=== PATIENT | female | born 1935 | race Caucasian/White ===

== ENCOUNTER 2017-12-07 17:22 | Day surgery (SDC) | payer MEDICARE ==
[~2017-12-07] VITALS: Ht 147.3 cm; Wt 40.9 kg
[2017-12-07 17:40] VITALS: BP 115/56
[2017-12-07] MEDS ORDERED: HYDROcodone/APAP 7.5 MG/325 MG (LORTAB, LORCET PLUS) TABLET PO PRN (18:15)
[2017-12-07] MEDS ORDERED: fentaNYL INJECTION 100 MCG/2 ML AMP IVP PRN ×2 (18:15→20:15)
[2017-12-07] MEDS ORDERED: CATHETER FLUSH 10 ML SYR IV PRN (18:30)
[2017-12-07] MEDS: NS IV 1000 ML 1,000 ML IV SCH (18:31)
[2017-12-07] MEDS ORDERED: ONDANSETRON 4 MG/2 ML (SDV) Z0FRAN IVP PRN (19:00)
[2017-12-07] MEDS: CIPROFLOXACIN IV 400MG/200ML 200 ML IV SCH (19:23)
[2017-12-07 19:40] VITALS: BP 104/47
[2017-12-07] MEDS ORDERED: diphenhydrAMINE 50 MG/ML INJ (BENADRYL) IVP PRN (19:45)
--- NOTE | 2017-12-07 20:56 | Progress Note-Pre Operative ---
Pre-Operative Progress Note H&P Reviewed The H&P was reviewed, patient examined and no changes noted. Date Seen by Provider: Dec 07, 2017 Time Seen by Provider: 20:30 Date H&P Reviewed: Dec 07, 2017 Time H&P Reviewed: 20:30 Pre-Operative Diagnosis: acute calculous cholecystitis KELLY FOREMAN MD Dec 07, 2017 8:56 pm
--- NOTE | 2017-12-07 21:21 | HISTORY AND PHYSICAL ---
DATE OF SERVICE: ATTENDING PRIMARY CARE PHYSICIAN: Dr. Tyrell Lorenzo. HISTORY OF PRESENT ILLNESS: The patient is an 82-year-old female who was seen at [facility] for pain in the right upper abdominal quadrant. She reports that this has been episode #3 or 4. She reports that approximately 1 year ago she did have significant pain in the right upper abdominal quadrant, was also found to have pancreatitis. It appears that she also did have some form of choledocholithiasis and she was referred to gastroenterology and underwent ERCP and stone extraction approximately one year ago. She does not remember if she was instructed to proceed with surgery referral for a completion cholecystectomy. Either way, she has again had some intermittent episodes of pain in the right upper abdominal quadrant usually after meals that would sometimes be mild, however, this time around has been more severe. She has had pain in the right upper abdominal quadrant for the past three to four days with associated nausea; however, no vomiting. A CT scan was performed in [place], which did show some gallbladder wall thickening as well as gallstones consistent with an acute cholecystitis. Her only other past medical history includes hypertension. PAST MEDICAL HISTORY: Hypertension and pancreatitis. PAST SURGICAL HISTORY: Total abdominal hysterectomy, bilateral cataract surgery, laparoscopic Ramiro fundoplication, laparoscopic appendectomy, ERCP and stone extraction one year ago. ALLERGIES: SULFA. MEDICATIONS: Nexium 40 mg daily, aspirin 81 mg daily, lisinopril 10 mg daily, and tramadol 50 mg p.r.n. SOCIAL HISTORY: Negative smoke, negative alcohol. FAMILY HISTORY: Mother, breast cancer. REVIEW OF SYSTEMS: Well-nourished female currently in no acute distress. She is not experiencing any shortness of breath or difficulty breathing. No chest pain, palpitations or diaphoresis. Intermittent episodes of nausea; however, no vomiting. Her chief complaint is mostly right upper abdominal quadrant pain with some radiation towards the back. No diarrhea or constipation, no red blood per rectum, no dark tarry stools. No fever or chills, no recent inadvertent weight loss. All other review of systems is negative. PHYSICAL EXAMINATION: VITAL SIGNS: Temperature 98.8, blood pressure 115/56, pulse 86, respirations 16, pulse ox 97% on room air. CHEST: Clear. Good breath sounds bilaterally. HEART: Regular, no murmurs. EXTREMITIES: No lower extremity edema. Negative Homans sign. HEENT: No scleral icterus. NECK: No cervical lymphadenopathy. ABDOMEN: Soft, nondistended. There is pain in the right upper abdominal quadrant upon palpation with no peritoneal signs. SKIN: Warm, dry. ASSESSMENT AND PLAN: An 82-year-old female with acute calculous cholecystitis. The natural history of gallbladder disease was explained to the patient as well as the risk of recurrent episodes of cholecystitis as well as risk of gangrenous cholecystitis and perforation. She is understanding of the risks and benefits of surgery and would like to proceed with a laparoscopic cholecystectomy, which we will proceed with on this admission. Job ID: [id number] DocumentID: [id number] Dictated Date: 12/07/2017 20:54:50 Airline Dispatcher Date: 12/07/2017 21:21:14 Dictated By: KELLY FOREMAN MD
[2017-12-07] MEDS: metroNIDAZOLE 500MG/100ML IVPB 100 ML IV SCH (22:06)
[2017-12-08 04:00] VITALS: BP 111/56
[2017-12-08 06:10] LABS: BASOPHILS % (AUTO) 0 % (0-10); EOSINOPHILS # (AUTO) 0.2 10^3/uL (0.0-0.3); EOSINOPHILS % (AUTO) 2 % (0-10); HEMATOCRIT 29 % (35-52); HEMOGLOBIN 9.1 G/DL (11.5-16.0); LYMPHOCYTES # (AUTO) 0.9 X 10^3 (1.0-4.0); LYMPHOCYTES % (AUTO) 8 % (12-44); MEAN CORPUSCULAR HEMOGLOBIN 32 PG (25-34); MEAN CORPUSCULAR HGB CONC 32 G/DL (32-36); MEAN CORPUSCULAR VOLUME 101 FL (80-99); MEAN PLATELET VOLUME 9.7 FL (7.4-10.4); MONOCYTES # (AUTO) 1.5 X 10^3 (0.0-1.0); MONOCYTES % (AUTO) 14 % (0-12); NEUTROPHILS # (AUTO) 8.1 X 10^3 (1.8-7.8); NEUTROPHILS % (AUTO) 76 % (42-75); PLATELET COUNT 269 10^3/uL (130-400); RED BLOOD COUNT 2.83 10^6/uL (4.35-5.85); RED CELL DISTRIBUTION WIDTH 12.5 % (10.0-14.5); WHITE BLOOD COUNT 10.7 10^3/uL (4.3-11.0)
[2017-12-08 06:32] LABS: ALBUMIN 2.8 GM/DL (3.2-4.5); BILIRUBIN,TOTAL 0.3 MG/DL (0.1-1.0); CALCIUM 8.7 MG/DL (8.5-10.1); CREATININE SERUM 1.49 MG/DL (0.60-1.30); POTASSIUM 4.5 MMOL/L (3.6-5.0); TOTAL PROTEIN 5.8 GM/DL (6.4-8.2)
[2017-12-08] MEDS: NS IV 1000 ML 1,000 ML IV SCH ×2 (06:34→14:34)
[2017-12-08] MEDS: metroNIDAZOLE 500MG/100ML IVPB 100 ML IV SCH (07:54)
[2017-12-08] MEDS: CIPROFLOXACIN IV 400MG/200ML 200 ML IV SCH (07:57)
[2017-12-08 08:00] VITALS: BP 110/56
[2017-12-08] MEDS ORDERED: PANTOPRAZOLE 40 MG (PROTONIX) VIAL IV SCH (09:00)
[2017-12-08] MEDS ORDERED: CITA10TA7 PO (09:13)
[2017-12-08] MEDS ORDERED: ASPI-983 PO (09:13)
[2017-12-08] MEDS ORDERED: MAGN400T39 PO (09:13)
[2017-12-08] MEDS ORDERED: GABA-486 PO (09:13)
[2017-12-08] MEDS ORDERED: CALC-654 PO (09:13)
[2017-12-08] MEDS ORDERED: LIPA1CAP27 PO (09:13)
[2017-12-08] MEDS ORDERED: PANT40TA3 PO (09:13)
[2017-12-08] MEDS ORDERED: MULT-351 PO (09:13)
[2017-12-08] MEDS ORDERED: METO-370 PO (09:13)
[2017-12-08] MEDS ORDERED: METO5TAB2 PO (09:13)
[2017-12-08] MEDS ORDERED: LISI10TA2 PO (09:13)
[2017-12-08] MEDS ORDERED: ASPI-992 PO (09:13)
[2017-12-08] MEDS ORDERED: ROCURONIUM 10 MG/ML 5 ML SYRINGE IV ONE (09:58)
[2017-12-08] MEDS ORDERED: LIDOCAINE PF 2% 5 ML (XYLOCAINE) VIAL ONE (09:58)
[2017-12-08] MEDS ORDERED: fentaNYL INJECTION 100 MCG/2 ML AMP ONE (09:58)
[2017-12-08] MEDS ORDERED: ONDANSETRON 4 MG/2 ML (SDV) Z0FRAN ONE (09:58)
[2017-12-08] MEDS ORDERED: LACTATED RINGERS 1,000 ML IV ONE (09:58)
[2017-12-08] MEDS ORDERED: proPOfol 200 MG/20 ML (DIPRIVAN) VIAL IV ONE (09:58)
[2017-12-08] MEDS ORDERED: MIDAZOLAM 2 MG/2 ML (VERSED) VIAL ONE (09:59)
[2017-12-08] MEDS ORDERED: DEXAMETHASONE 10 MG/ML (DECADRON) 1 ML VIAL ONE (09:59)
[2017-12-08] MEDS ORDERED: SEVOFLURANE (ULTANE) 15 ML INHAL SOLN ONE ×5 (09:59→11:36)
[2017-12-08] MEDS ORDERED: BUP/EPI 0.5% 1:200,000 (SENSORCAINE) 30 ML VIAL ONE (10:15)
[2017-12-08] MEDS: LACTATED RINGERS 1,000 ML IV PRN ×2 (10:27→11:39)
[2017-12-08] MEDS ORDERED: ceFAZolin 1,000 MG/10 ML (ANCEF) VIAL ONE (11:04)
[2017-12-08] MEDS ORDERED: METOCLOPRAMIDE INJ 10 MG/2 ML (REGLAN) ONE (11:06)
[2017-12-08] MEDS ORDERED: SUCCINYLCHOLINE INJ 100 MG/5 ML SYR ONE (11:40)
[2017-12-08] MEDS ORDERED: NEOSTIGMINE 1 MG/ML 5 ML SYRINGE ONE (11:45)
[2017-12-08] MEDS ORDERED: GLYCOPYRROLATE 0.2 MG/ML (ROBINUL) 2 ML VIAL ONE (11:45)
--- NOTE | 2017-12-08 11:56 | Progress Note-Post Operative ---
Post-Operative Progess Note Surgeon (s)/Specialty Plant Supervisor (s) Surgeon KELLY FOREMAN MD Specialty Plant Supervisor: marcus bonilla PHYSICAL THERAPY TEACHER Pre-Operative Diagnosis acute calculous cholecystitis Post-Operative Diagnosis same Procedure & Operative Findings Date of Procedure 12/08/17 Procedure Performed/Findings laparoscopic cholecystectomy Anesthesia Type GET Estimated Blood Loss Estimated blood loss (mL): minimal Specimens/Packing Specimens Removed gallbladder KELLY FOREMAN MD Dec 08, 2017 11:55
[2017-12-08] MEDS ORDERED: SUGAMMADEX 500 MG/5 ML VIAL (BRIDION) IV ONE (11:58)
[2017-12-08] MEDS ORDERED: HYDR-34 PO (11:59)
--- NOTE | 2017-12-08 11:59 | Discharge Inst-Surgical ---
D/C Lap Instructions-KELLEN New, Converted, or Re-Newed RX: RX on Chart Follow Up Appt in 2 weeks Activity as tolerated No driving for 24 hours No driving while on pain medications Incentive Spirometry use every 2 hours while awake Regular Diet Symptoms to Report: Fever over 101 degree F, Nausea/Vomiting Infection Signs and Symptoms to report: Increased redness, Foul odor of wound, Increased drainage Bathing instructions: May shower Operative Area Clean/Dry; Keep incision clean/dry If any problems/questions: Contact your physician or go to Emergency Room KELLY FOREMAN MD Dec 08, 2017 11:59
[2017-12-08] MEDS ORDERED: HYDROmorphone 2 MG/ML VIAL (DILAUDID) ONE (12:15)
[2017-12-08] MEDS ORDERED: HYDROmorphone 2 MG/ML VIAL (DILAUDID) IV ONE (12:30)
[2017-12-08] MEDS ORDERED: PROMETHAZINE INJ 25 MG/ML (PHENERGAN) AMP IVP ONE (12:30)
[2017-12-08] MEDS ORDERED: ONDANSETRON 4 MG/2 ML (SDV) Z0FRAN IVP PRN (12:30)
[2017-12-08 17:51] VITALS: BP 110/56
--- NOTE | 2017-12-08 20:32 | OPERATIVE REPORT ---
DATE OF SERVICE: 12/08/2017 ATTENDING PRIMARY CARE PHYSICIAN: Dr. Tyrell Lorenzo. PREOPERATIVE DIAGNOSIS: Acute calculous cholecystitis. POSTOPERATIVE DIAGNOSIS: Acute calculous cholecystitis. PROCEDURE: Laparoscopic cholecystectomy. SURGEON: Kelly Foreman MD THIMBLE PRESS OPERATOR: Jason Ghotra APRN. ANESTHESIA: General endotracheal. ESTIMATED BLOOD LOSS: Minimal. FINDINGS: Inflamed gallbladder, which was distended and there was a hydrops of the gallbladder as well. DISPOSITION: The patient tolerated the procedure well. INDICATIONS: The patient is an 82-year-old female who was seen in the emergency department for pain in the right upper abdominal quadrant as well as nausea. She reports that this is her third or fourth episode. She also states that approximately one year ago, she had similar symptoms and also had a pancreatitis. It appears that she had some form of gallstone pancreatitis and did undergo ERCP and stone extraction approximately one year ago; however, she did not follow up for completion cholecystectomy. This time around, she has again had more pain in the right upper abdominal quadrant, which was more severe in nature. A CT scan was performed, which did show gallbladder wall thickening as well as multiple gallstones consistent with an acute calculous cholecystitis. DESCRIPTION OF PROCEDURE: The patient was brought to the operating room, laid supine on the table. After adequate IV pain and sedating medications and general endotracheal intubation, the abdomen was prepped and draped in standard surgical fashion. A 0.5% Marcaine with epinephrine was used to anesthetize the overlying skin in the left upper abdominal quadrant and a small transverse skin incision was made using a 15 blade. An 0 silk suture was applied to the medial aspect of the incision for retraction and a Veress needle was inserted with a low opening pressure of 0 mmHg. The abdomen was then insufflated to 15 mmHg pressure. The Veress needle was removed and a 5 mm Xcel trocar was placed followed by a 5 mm 45-degree angle laparoscope visualizing the peritoneal cavity. A 4-quadrant abdominal exploration was performed. There was an inflammatory phlegmon in the right upper abdominal quadrant with adherent omentum consistent with an acute cholecystitis. Gallbladder wall was also thickened as well. Under direct visualization, we then proceeded to place a supraumbilical 10 mm port after the skin and peritoneal lining were anesthetized using 0.5% Marcaine with epinephrine and a transverse skin incision was made using a 15 blade. In a similar manner, a right upper abdominal quadrant 5 mm port was placed. The patient was then placed in reverse Trendelenburg position as well as plane right side up, left side down. The omental adhesions were then taken down bluntly using a grasper. The gallbladder was then decompressed using a laparoscopic needle and suctioned with clear fluid identified consistent with a hydrops of the gallbladder. The gallbladder wall was very thick as well. The gallbladder fundus was then retracted anteriorly and superiorly and the hepatoduodenal ligament was then opened using electrocautery as well as blunt dissection and hook instrument. The entire critical view of safety was identified including the cystic duct and artery as the only two structures going into the gallbladder, triangle of Calot as well as the cystic plate behind the proximal gallbladder. A timeout was then taken. The cystic duct and artery were then clipped proximally, distally and cut with EndoShears. The gallbladder was then dissected off the liver bed using electrocautery with visualization of good hemostasis as well as no leaking ducts of Luschka. The gallbladder was removed through the 10 mm port site using an EndoCatch bag. We then proceeded to close the fascia and peritoneum to the 10 mm port site using a 0 Vicryl suture on a UR needle with two [id number]. The abdomen was desufflated and the remaining ports were removed. All skin incisions were closed using 4-0 Monocryl running subcuticular sutures. Wounds were then cleaned and covered with Dermabond. The patient tolerated the procedure well. We will start IV and oral pain medication as well as a clear liquid diet. Once she is tolerating clears, has good pain control with oral pain medications, ambulating well, we will discharge her home. She will be instructed to do no heavy lifting or exertion for the next two weeks. Job ID: [id number] DocumentID: [id number] Dictated Date: 12/08/2017 12:13:41 Reel Cart Operator Date: 12/08/2017 20:31:13 Dictated By: KELLY FOREMAN MD [facility]
[2017-12-09] MEDS ORDERED: CIPROFLOXACIN IV 400MG/200ML 200 ML IV SCH (09:00)
--- NOTE | 2017-12-12 15:08 | Physician Query-Final Dx ---
ANT VIERA 12/12/17 1508: Final Diagnosis Give Final Diagnosis Please give Final Diagnosis KELLY FOREMAN MD 12/12/17 1802: Final Diagnosis Give Final Diagnosis acute calculous cholecystitis ANT VIERA Dec 12, 2017 15:08 KELLY FOREMAN MD Dec 12, 2017 18:02
== END 2017-12-08 16:10 | disposition home or self-care (01) ==
LOC: 4TH 17:22 → UNDOADMIN 17:22 → SDC 17:22 → 4TH 17:22 → SDC 12-08 16:10 → UNDODISIN 12-08 16:10
PROVIDERS: ATTEND Surgery
DX: K80.12 Calculus of gallbladder with acute and chronic cholecystitis without obstruction (principal); I10 Essential (primary) hypertension; Z87.19 Personal history of other diseases of the digestive system; Z79.82 Long term (current) use of aspirin; Z79.899 Other long term (current) drug therapy
CPT/HCPCS: 36415; 80053; 85025; 87081; 88304; 94664